=== PATIENT | female | born 1990 | race Caucasian/White ===

== ENCOUNTER → 2018-11-25 | Outpatient (CLI) | payer SELFPAY ==
[~2018-11-25] MED LIST: IBUP800 PO; Norco 5-325 Ta1 EACH PO; Percocet 5-3251 EACH PO; Verotin-Gr Cap1 EACH PO
== END | disposition home or self-care (01) ==
LOC: LAB 09:04 → LAB SHORT 09:04
DX: Z34.80 Encounter for supervision of other normal pregnancy, unspecified trimester (principal)
CPT/HCPCS: 87081; 87653

== ENCOUNTER 2018-11-26 21:57 | Inpatient (IN) | payer SELFPAY ==
[~2018-11-26] VITALS: Ht 162.6 cm; Wt 0.3 kg
[2018-11-26 23:39] LABS: BASOPHILS ABSOLUTE AUTO 0.03 K/mm3 (0.00-0.23); BASOPHILS PERCENT AUTO 0 % (0-2); EOSINOPHILS ABSOLUTE AUTO 0.07 K/mm3 (0.00-0.68); EOSINOPHILS PERCENT AUTO 1 % (0-6); Hematocrit 37.6 % (33.0-51.0); Hemoglobin 12.1 g/dL (11.5-16.0); IMMATURE GRAN ABSOLUTE AUTO 0.07 K/mm3 (0.00-0.10); IMMATURE GRAN PERCENT AUTO 1 % (0-1); LYMPHOCYTES ABSOLUTE AUTO 1.85 K/mm3 (0.84-5.20); LYMPHOCYTES PERCENT AUTO 18 % (21-46); MONOCYTES ABSOLUTE AUTO 0.77 K/mm3 (0.16-1.47); MONOCYTES PERCENT AUTO 7 % (4-13); Mean Corpuscular HGB 29.2 pg (26.0-34.0); Mean Corpuscular HGB Conc 32.2 g/dL (31.5-36.5); Mean Corpuscular Volume 91 fL (80-100); Mean Platelet Volume 11.7 fL (9.1-12.4); NEUTROPHILS ABSOLUTE AUTO 7.56 K/mm3 (1.96-9.15); NEUTROPHILS PERCENT AUTO 73 % (41-73); Platelet Count 177 K/mm3 (150-400); RDW Coefficient Variation 12.5 % (11.7-14.2); RDW Standard Deviation 41.1 fL (35.1-46.3); Red Blood Cell Count 4.15 M/mm3 (3.80-5.20); White Blood Cell Count 10.35 K/mm3 (4.00-11.30)
[2018-11-27 05:24] LABS: Hematocrit 34.1 % (33.0-51.0); Hemoglobin 11.4 g/dL (11.5-16.0); Mean Corpuscular HGB 29.5 pg (26.0-34.0); Mean Corpuscular HGB Conc 33.4 g/dL (31.5-36.5); Mean Corpuscular Volume 88 fL (80-100); Platelet Count 149 K/mm3 (150-400); RDW Coefficient Variation 12.6 % (11.7-14.2); RDW Standard Deviation 40.1 fL (35.1-46.3); Red Blood Cell Count 3.87 M/mm3 (3.80-5.20); White Blood Cell Count 14.24 K/mm3 (4.00-11.30)
--- NOTE | 2018-11-27 13:21 | NUR ---
CONSULT FOR BABY BORN AT 36.1 WEEKS GESTATION. MOM IS ABLE TO GET HIM TO LATCH FAIRLY WELL SHE FEELS, AND GIVES HIM SNS WITH 5-10CC OF FORMULA OVER THE 10-15 MINUTES BF. BF HER DAUGHTER FOR 1 YEAR, STOPPED BF DURING THIS . HAS A MANUAL PUMP AT HOME, PLANS TO CALL HER INSURANCE TO CHECK ON A DOUBLE ELECTRIC PUMP TO HELP STIMULATE HER SUPPLY PRODUCTION BABY MAY NOT BE ABLE TO BE EFFICIENT ENOUGH ON DRAINING HER BREASTS TO HELP WITH PRODUCTION. BABY CURRENT ASLEEP IN [place]. MOM IS COMFORTABLE WITH CONTINUEING SNS DURING BF SESSIONS. WILL TRY AND EVALUATE HIS SUCK WHEN HE IS AWAKE LATER TODAY. INSTRUCT MOM IN CHANGES TO EXPECT DURING THE FIRST WEEK WITH FEEDINGS AND WITH BABY AND REFERRED TO BF BROCHURE AND PAGE 18 OF BF [employer]OOK[employer], FOR PHOTOS AND INFORMATION. QUESTIONS ANSWERED.
--- NOTE | 2018-11-27 19:02 | NUR ---
REPORT TO JAYCEE MCINTOSH
[2018-11-28] MEDS ORDERED: IBUP800 PO (10:13)
--- NOTE | 2018-11-28 13:00 | NUR ---
PT DISCHARGED TO HOME. PT GIVEN DISCHARGE INSTRUCTIONS. NO QUESTIONS OR CONCERNS AT THIS TIME. PRESCRIPTION OF IBUPROFEN GIVEN TO PT.
--- NOTE | 2018-11-28 15:25 | NUR ---
CONSULT FOLLOW UP. FAMILY PLANS HOME TODAY. MOM FEELS LIKE HE IS WAKING UP BETTER FOR FEEDINGS, IS LATCHING EACH FEEDING, AND SHE IS OFFERING SNS WITH FORMULA EACH FEEDING. WT LOSS IS 3% TODAY. HE IS CURRENTLY ASLEEP IN [place]. HER MILK ISN'T IN QUITE YET. PLAN IS TO START PUMPING PC FOR 10-15 MINUTES AT HOME, HER SUPPLY BUILDS, OFFER THE EBM RATHER THAN FORMULA FOR SUPPLEMENTS. INSTRUCT TO INCREASE AMOUNT OF SUPPLEMENT/FEEDING BY 10CC EACH DAY, IE: 20CC DAY 2, 30CC DAY 3. WHEN SHE FEELS HIS SUCTION START INCREASING, START DECREASING THE SUPPLEMENT AMOUNT, ESPECIALLY WHEN SHE IS ABLE TO PUMP 2 OZ/BREAST EASILY. GO SLOWLY ON DECREASING SUPPLEMENT AMOUNT SO THAT HE CONTINUES TO HAVE WET DIAPERS EACH FEEDING. PLAN TO FOLLOW UP IN 2 DAYS IF [facility] CLINIC.
== END 2018-11-28 12:33 | disposition home or self-care (01) | DRG 807 ==
LOC: BC 21:57
PROVIDERS: ADMIT Obstetrics & Gynecology
PROC: 10E0XZZ Delivery of Products of Conception, External Approach (ICD-10-PCS; principal; 2018-11-26)
PROC: 0HQ9XZZ Repair Perineum Skin, External Approach (ICD-10-PCS; 2018-11-26)
DX: O60.23X0 Term delivery with preterm labor, third trimester, not applicable or unspecified (principal); Z37.0 Single live birth; O34.03 Maternal care for unspecified congenital malformation of uterus, third trimester; O70.0 First degree perineal laceration during delivery; Z3A.36 36 weeks gestation of pregnancy; Q51.3 Bicornate uterus
CPT/HCPCS: 36415; 85025; 85027; J2210

== ENCOUNTER 2019-09-18 09:15 | Emergency (ER) | payer BC, SELFPAY ==
[~2019-09-18] VITALS: Ht 162.6 cm; Wt 54.4 kg
[2019-09-18 10:21] LABS: BASOPHILS ABSOLUTE AUTO 0.03 K/mm3 (0.00-0.23); BASOPHILS PERCENT AUTO 1 % (0-2); EOSINOPHILS ABSOLUTE AUTO 0.02 K/mm3 (0.00-0.68); EOSINOPHILS PERCENT AUTO 0 % (0-6); Hematocrit 40.4 % (33.0-51.0); IMMATURE GRAN ABSOLUTE AUTO 0.01 K/mm3 (0.00-0.10); IMMATURE GRAN PERCENT AUTO 0 % (0-1); LYMPHOCYTES ABSOLUTE AUTO 1.23 K/mm3 (0.84-5.20); LYMPHOCYTES PERCENT AUTO 23 % (21-46); MONOCYTES ABSOLUTE AUTO 0.25 K/mm3 (0.16-1.47); MONOCYTES PERCENT AUTO 5 % (4-13); Mean Corpuscular HGB 28.3 pg (26.0-34.0); Mean Corpuscular HGB Conc 32.2 g/dL (31.5-36.5); Mean Corpuscular Volume 88 fL (80-100); Mean Platelet Volume 10.5 fL (9.1-12.4); NEUTROPHILS ABSOLUTE AUTO 3.89 K/mm3 (1.96-9.15); NEUTROPHILS PERCENT AUTO 72 % (41-73); Platelet Count 240 K/mm3 (150-400); RDW Coefficient Variation 11.9 % (11.7-14.2); RDW Standard Deviation 38.8 fL (35.1-46.3); White Blood Cell Count 5.43 K/mm3 (4.00-11.30)
[2019-09-18 10:41] LABS: Alanine Aminotransfer (ALT/SGP 20 U/L (12-78); Albumin, Blood 4.2 g/dL (3.4-5.0); Albumin/Globulin Ratio 1.1 (0.8-1.8); Alk Phos 82 U/L (50-136); Anion Gap 9 mmol/L (6-16); Aspartate Aminotrans (AST/SGOT 12 U/L (12-37); Bilirubin, Total 0.6 mg/dL (0.1-1.0); Blood Urea Nitrogen 15 mg/dL (8-24); Bun/Creatinine Ratio 25.5 (12.0-20.0); CO2, Blood 22 mmol/L (21-32); Calcium, Blood 9.1 mg/dL (8.5-10.1); Chloride, Blood 107 mmol/L (98-108); Creatinine, Blood 0.59 mg/dL (0.40-1.00); Globulin, Blood 3.9 g/dL (2.2-4.0); Glomerular Filtration Rate >60 (60-); Glucose, Blood 72 mg/dL (70-99); Potassium, Blood 3.7 mmol/L (3.5-5.5); Sodium, Blood 138 mmol/L (136-145); Total Protein, Blood 8.1 g/dL (6.4-8.2)
[2019-09-18 10:55] LABS: Source, Urine Clean Catch
[2019-09-18 11:07] LABS: Bilirubin, Urine Neg (Neg); Blood, Urine Neg (Neg); Glucose Qualitative, Urine Neg (Neg); Ketones, Urine 4+ (Neg); Leukocyte Esterase, Urine 1+ (Neg); Nitrite, Urine Neg (Neg); Protein, Urine 1+ (Neg); Specific Gravity, Urine 1.025 (1.003-1.022); Urobilinogen, Urine NORM (Normal)
[2019-09-18 11:43] LABS: Appearance, Urine Clear (Clear); Color, Urine Yellow (P-Yellow)
[2019-09-18 11:44] LABS: Bacteria Many /hpf; Mucus Mod (0-Heavy); Red Blood Cells, Urine 0-2 /hpf (0-2); Squamous Epithelial Cells Many /hpf (Few)
== END 2019-09-18 12:28 | disposition home or self-care (01) ==
LOC: ER 09:15
PROVIDERS: Emergency Medicine
DX: R10.31 Right lower quadrant pain (principal)
CPT/HCPCS: 36415; 74177; 80053; 81001; 84703; 85025; 87086; 96361; 96374-59; 96375; 99284-25; J1885; J2405; J7030; Q9967

== ENCOUNTER → 2021-05-16 | Outpatient (CLI) | payer BC ==
[2021-05-18 15:11] LABS: HPV 16 Negative (Negative); HPV 18 Negative (Negative); HPV OTHER HR TYPES Negative (Negative)
== END | disposition home or self-care (01) ==
LOC: LAB SHORT 17:00
PROVIDERS: Obstetrics & Gynecology
DX: Z34.81 Encounter for supervision of other normal pregnancy, first trimester (principal)
CPT/HCPCS: 87624; G0123

== ENCOUNTER 2023-08-25 14:40 | Inpatient (IN) | payer OTHER ==
[~2023-08-25] VITALS: Ht 162.6 cm; Wt 76.3 kg
[2023-08-25] VITALS (25 sets, daily range): BP systolic 82–126; BP diastolic 52–85
[2023-08-25 15:35] LABS: BASOPHILS ABSOLUTE AUTO 0.02 K/mm3 (0.00-0.23); BASOPHILS PERCENT AUTO 0 % (0-2); EOSINOPHILS ABSOLUTE AUTO 0.09 K/mm3 (0.00-0.68); EOSINOPHILS PERCENT AUTO 1 % (0-6); Hematocrit 37.5 % (33.0-51.0); Hemoglobin 12.2 g/dL (11.5-16.0); IMMATURE GRAN ABSOLUTE AUTO 0.03 K/mm3 (0.00-0.10); IMMATURE GRAN PERCENT AUTO 0 % (0-1); LYMPHOCYTES ABSOLUTE AUTO 1.56 K/mm3 (0.84-5.20); LYMPHOCYTES PERCENT AUTO 21 % (21-46); MONOCYTES ABSOLUTE AUTO 0.49 K/mm3 (0.16-1.47); MONOCYTES PERCENT AUTO 7 % (4-13); Mean Corpuscular HGB Conc 32.5 g/dL (31.5-36.5); Mean Corpuscular Volume 83 fL (80-100); Mean Platelet Volume 12.7 fL (9.1-12.4); NEUTROPHILS ABSOLUTE AUTO 5.25 K/mm3 (1.96-9.15); NEUTROPHILS PERCENT AUTO 71 % (41-73); Platelet Count 144 K/mm3 (150-400); RDW Coefficient Variation 13.5 % (11.7-14.2); RDW Standard Deviation 40.6 fL (35.1-46.3); Red Blood Cell Count 4.52 M/mm3 (3.80-5.20); White Blood Cell Count 7.44 K/mm3 (4.00-11.30)
[2023-08-26 01:31] VITALS: BP 111/56
[2023-08-26 04:26] VITALS: BP 113/70
[2023-08-26 06:59] VITALS: BP 111/72
[2023-08-26] MEDS ORDERED: Colace100 MG PO (07:31)
[2023-08-26] MEDS ORDERED: IBU800 MG PO (07:31)
[2023-08-26] MEDS ORDERED: ACET500 PO (07:31)
[2023-08-26 10:44] VITALS: BP 117/79
[2023-08-26 15:03] VITALS: BP 125/74
[2023-08-26 19:10] VITALS: BP 120/71
== END 2023-08-26 21:45 | disposition home or self-care (01) | DRG 807 ==
LOC: OBS 14:40 → BC 15:15 → OBS 15:16 → BC 15:17
PROVIDERS: ADMIT Obstetrics & Gynecology
PROC: 10E0XZZ Delivery of Products of Conception, External Approach (ICD-10-PCS; principal; 2023-08-25)
PROC: 3E0R3BZ Introduction of Anesthetic Agent into Spinal Canal, Percutaneous Approach (ICD-10-PCS; 2023-08-25)
PROC: 00HU33Z Insertion of Infusion Device into Spinal Canal, Percutaneous Approach (ICD-10-PCS; 2023-08-25)
PROC: 10907ZC Drainage of Amniotic Fluid, Therapeutic from Products of Conception, Via Natural or Artificial Opening (ICD-10-PCS; 2023-08-25)
DX: O34.03 Maternal care for unspecified congenital malformation of uterus, third trimester (principal); Z37.0 Single live birth; Q51.3 Bicornate uterus; Z3A.38 38 weeks gestation of pregnancy
CPT/HCPCS: 36415; 51702; 59025; 85025; 86850; 86900; 86901; A9270; J1885; J2590; J7120